=== PATIENT | female | born 2000 | race African-American/Black ===

== ENCOUNTER 2019-07-04 10:55 | Inpatient (IN) ==
[2019-07-04] MEDS ORDERED: CITRIC ACID/SODIUM CITRATE 30 ML UDCUP PO ONE (11:03)
[2019-07-04] MEDS ORDERED: FAMOTIDINE 20 MG/2 ML VIAL IV ONE (11:03)
[2019-07-04] MEDS ORDERED: ceFAZolin 3,000 MG in SYRINGE 1 EACH IV ONE (11:03)
[2019-07-04] MEDS ORDERED: OXYTOCIN 10 UNIT/ML VIAL IM ONE (11:06)
[2019-07-04] MEDS ORDERED: OXYTOCIN/LR 30 UNIT/1,000 ML BAG IV ONE (11:06)
[2019-07-04] MEDS ORDERED: LACTATED RINGERS 1,000 ML IV SCH ×2 (11:30→14:30)
[2019-07-04 11:31] LABS: Basophils % 0.2 % (0.0-0.8); Eosinophils # 0.2 10*3/uL (0.0-0.87); Eosinophils % 2.1 % (0.00-10.9); Hematocrit 29.6 VOL% (35.7-47.0); Hemoglobin 8.7 GM/DL (12.0-16.0); Immature Granulocytes % 3.4 %; Lymphocytes # 1.4 10*3/uL (1.4-4.0); Lymphocytes % 16.3 % (21.3-54.2); Mean Corpuscular HGB Conc 29.4 GM/DL (32-36); Mean Corpuscular Volume 75.1 FL (87-102); Mean Platelet Volume 9.5 FL (9.6-12.0); Monocytes % 7.7 % (1.7-12.7); Neutrophils % 70.3 % (38.7-73.9); Platelet Count 384 T/CUMM (130-400); Red Blood Count 3.94 MC/CUMM (3.8-5.5); Red Cell Distribution Width 16.7 % (9.3-17.3); White Blood Count 8.7 T/CUMM (4-12)
[2019-07-04 11:47] LABS: INR 0.9; PT Patient Result 9.4 SECS (9.6-12.2); Partial Thromboplastin Time 25.4 SECS (20.8-36.0)
[2019-07-04 12:00] LABS: Alanine Aminotransferase 16 U/L (13-56); Albumin 2.5 G/DL (3.4-5.0); Alkaline Phosphatase 102 U/L (45-117); Aspartate Amino Transferase 12 U/L (0-37); Bilirubin,Total < 0.39 MG/DL (0.2-1.0); Blood Urea Nitrogen 2 MG/DL (7-18); Calcium 8.8 MG/DL (8.5-10.1); Estimated Glom Filtration Rate 193 ML/MIN; Glucose 76 MG/DL (74-106); Osmolality,Calculated 267.8 MOS/KG (273-304); Total Protein 7.3 G/DL (6.4-8.3)
[2019-07-04] MEDS ORDERED: LACTATED RINGERS 1,000 ML IV ONE (12:31)
[2019-07-04 13:28] LABS: Cord Venous Blood HCO3 22.1 MMOL/L; Cord Venous Blood PCO2 40.3 MMHG; Cord Venous Blood PO2 19.6 MMHG
[2019-07-04 13:29] LABS: Apearance,Urine CLEAR (Clear); Bilirubin,Urine Negative (Negative); Blood, Urine Negative (Negative); Glucose,Urine (UA) Negative (Negative); Ketones,Urine Negative (Negative); Mucus,Urine Occasional /LPF (Occasional); Nitrite,Urine Negative (Negative); Protein,Urine Negative; RBC,Urine 1 /HPF (0-4); Urine Color Colorless (Yellow); Urine Specific Gravity 1.002 (1.001-1.035); Urine Urobilinogen < 2.0 EU/DL (0.2-1.0); WBC,Urine <1 /HPF (0-6)
[2019-07-04] MEDS ORDERED: BUPIVACAINE SPINAL 0.75% 2 ML AMP SPINAL ONE (13:44)
[2019-07-04] MEDS ORDERED: FUROSEMIDE 20 MG/2 ML VIAL ONE (13:45)
[2019-07-04] MEDS ORDERED: ONDANSETRON 4 MG/2 ML VIAL ONE (13:45)
[2019-07-04] MEDS ORDERED: PHENYLEPHRINE 1 MG/10 ML SYRINGE IV ONE (13:45)
[2019-07-04] MEDS ORDERED: MORPHINE 10 MG/10 ML VIAL ONE (13:45)
[2019-07-04] MEDS ORDERED: SIMETHICONE CHEW 80 MG TABLET PO PRN (14:06)
[2019-07-04] MEDS ORDERED: OXYTOCIN/LR 20 UNIT/1,000 ML BAG IV ONE (14:06)
[2019-07-04] MEDS ORDERED: RHO(D) IMMUNE GLOBULIN 300 MCG SYRINGE IM ONE (14:06)
[2019-07-04] MEDS ORDERED: ACETAMINOPHEN 325 MG TABLET PO PRN (14:06)
[2019-07-04] MEDS ORDERED: ONDANSETRON 4 MG/2 ML VIAL IV PRN (14:06)
[2019-07-04] MEDS ORDERED: HYDROmorphone 2 MG/1 ML VIAL IV ONE (14:52)
[2019-07-04] MEDS: POTASSIUM CHLORIDE 20 MEQ TABLET PO SCH ×2 (18:23→21:16)
[2019-07-04] MEDS: FUROSEMIDE 40 MG/4 ML VIAL IV SCH (20:01)
[2019-07-04] MEDS: ceFAZolin 1,000 MG in SYRINGE 1 EACH IV SCH (20:03)
[2019-07-04 21:51] LABS: Basophils % 0.2 % (0.0-0.8); Eosinophils % 0.3 % (0.00-10.9); Hemoglobin 8.8 GM/DL (12.0-16.0); Immature Granulocytes % 1.7 %; Lymphocytes # 1.3 10*3/uL (1.4-4.0); Lymphocytes % 10.9 % (21.3-54.2); Mean Corpuscular HGB Conc 30.3 GM/DL (32-36); Mean Platelet Volume 10.3 FL (9.6-12.0); Monocytes % 7.3 % (1.7-12.7); NRBC # 0.07 10*3/uL; Neutrophils % 79.6 % (38.7-73.9); Platelet Count 343 T/CUMM (130-400); Red Blood Count 3.97 MC/CUMM (3.8-5.5); Red Cell Distribution Width 16.7 % (9.3-17.3); White Blood Count 12.1 T/CUMM (4-12)
[2019-07-05] MEDS: IBUPROFEN 800 MG TABLET PO PRN ×2 (01:32→20:11)
[2019-07-05] MEDS: FUROSEMIDE 40 MG/4 ML VIAL IV SCH ×2 (01:32→07:31)
[2019-07-05] MEDS: ceFAZolin 1,000 MG in SYRINGE 1 EACH IV SCH (03:55)
[2019-07-05 05:20] LABS: Basophils % 0.2 % (0.0-0.8); Eosinophils # 0.2 10*3/uL (0.0-0.87); Eosinophils % 1.5 % (0.00-10.9); Hematocrit 26.1 VOL% (35.7-47.0); Immature Granulocytes % 1.8 %; Immature Granulocytes Absolute 0.18 #; Lymphocytes # 1.4 10*3/uL (1.4-4.0); Lymphocytes % 14.2 % (21.3-54.2); Mean Corpuscular HGB Conc 30.7 GM/DL (32-36); Mean Corpuscular Volume 73.3 FL (87-102); Mean Platelet Volume 10.2 FL (9.6-12.0); Monocytes % 7.4 % (1.7-12.7); NRBC # 0.11 10*3/uL; Neutrophils % 74.9 % (38.7-73.9); Platelet Count 295 T/CUMM (130-400); Red Blood Count 3.56 MC/CUMM (3.8-5.5); Red Cell Distribution Width 16.8 % (9.3-17.3); White Blood Count 10.1 T/CUMM (4-12)
[2019-07-05] MEDS: METOCLOPRAMIDE 10 MG TABLET PO SCH ×2 (07:34→15:27)
[2019-07-05] MEDS: DOCUSATE SODIUM 100 MG CAPSULE PO SCH ×2 (08:27→20:10)
[2019-07-05] MEDS: POTASSIUM CHLORIDE 20 MEQ TABLET PO SCH ×3 (08:27→20:10)
[2019-07-05] MEDS: MULTIVITAMIN (PRENATAL) TABLET PO SCH (08:27)
[2019-07-05] MEDS: FERROUS SULFATE 325 MG TABLET PO SCH ×2 (08:27→20:10)
[2019-07-05] MEDS: MAGNESIUM HYDROXIDE SUSP 30 ML UDCUP PO PRN (12:30)
[2019-07-05] MEDS ORDERED: MAGNESIUM CITRATE 300 ML BOTTLE PO PRN (12:36)
[2019-07-06] MEDS: METOCLOPRAMIDE 10 MG TABLET PO SCH ×2 (00:35→08:41)
[2019-07-06] MEDS: FUROSEMIDE 40 MG/4 ML VIAL IV SCH (07:44)
[2019-07-06] MEDS: MAGNESIUM HYDROXIDE SUSP 30 ML UDCUP PO PRN (08:40)
[2019-07-06] MEDS: MULTIVITAMIN (PRENATAL) TABLET PO SCH (08:41)
[2019-07-06] MEDS: DOCUSATE SODIUM 100 MG CAPSULE PO SCH (08:41)
[2019-07-06] MEDS: FERROUS SULFATE 325 MG TABLET PO SCH (08:41)
[2019-07-06] MEDS: POTASSIUM CHLORIDE 20 MEQ TABLET PO SCH (08:41)
[2019-07-06] MEDS: IBUPROFEN 800 MG TABLET PO PRN (08:46)
[2019-07-06] MEDS ORDERED: DIPH/TET/ACEL PERT BOOSTER VACCINE 0.5 ML VIAL IM ONE (10:52)
[2019-07-06 12:22] VITALS: BP 141/71
== END 2019-07-06 12:15 | disposition home or self-care (01) | DRG 540 ==
LOC: N.LD 10:55 → N.OB 17:48
PROVIDERS: ADMIT Obstetrics & Gynecology; ATTEND Obstetrics & Gynecology
PROC: LDCSECT (ICD-10-PCS; 2019-07-04 15:15)